=== PATIENT | female | born 1950 | race Caucasian/White ===

== ENCOUNTER 2019-01-31 13:31 | Outpatient (CLI) | payer OTHER ==
[~2019-01-31 13:31] MED LIST: ASPIRINA500 MG PO; CRESTOR5 MG PO; HYZAAR 100-121 UDTAB PO; LAMICTAL5 MG PO; [UNRECOGNIZED DRUG - OTHER]
== END 2019-01-31 14:23 | disposition home or self-care (01) ==
LOC: MAMO-SONO 13:31
DX: N60.11 Diffuse cystic mastopathy of right breast (principal); Z12.31 Encounter for screening mammogram for malignant neoplasm of breast

== ENCOUNTER 2025-02-15 09:39 | Outpatient (CLI) | payer OTHER | END 2025-02-15 09:47 | disposition home or self-care (01) | LOC: RAD 09:39 | PROVIDERS: ATTEND Orthopaedic Surgery | DX: M25.551 Pain in right hip (principal) ==